=== PATIENT | female | born 1960 | race Caucasian/White ===

== ENCOUNTER 2025-08-20 14:08 | Emergency (ER) | payer OTHER ==
[2025-08-20] MEDS ORDERED: NA CHLORIDE 0.9% 1,000 ML ONE (14:41)
[2025-08-20] MEDS ORDERED: FAMOTIDINE 20 MG/2 ML VIAL IV ONE (14:41)
[2025-08-20] MEDS ORDERED: ONDANSETRON 4 MG/2 ML VIAL ONE (14:41)
[2025-08-20 14:52] LABS: PT Prothrombin Time 13.5 SECONDS (10-13.0); Protime INR 1.2
[2025-08-20 15:05] LABS: Absolute Lymphocytes (CBC) 1.1 K/uL (0.7-4.9); Hematocrit 39.3 % (36.0-45.0); Hemoglobin 14.1 g/dL (12.0-15.0); MCH 32.0 pg (27.0-35.0); MCHC 35.8 g/dL (32.0-36.0); MCV 89.4 fL (80-100); MPV 8.1 fL (7.6-11.3); Nucleated RBC Absolute Count 0.0 (0-0); Nucleated Red Blood Cells % 0.1 % (0-0); RBC Red Blood Cell Count 4.40 M/uL (3.86-4.86); White Blood Count 11.80 thou/uL (4.3-10.9)
[2025-08-20 15:08] LABS: ALT/SGPT 28 U/L (13-56); Albumin 3.3 g/dL (3.4-5.0); Albumin/Globulin Ratio 0.9 (1.1-1.8); Alkaline Phosphatase 68 U/L (45-117); Anion Gap 7.3 mEq/L (5.0-15.0); BUN Blood Urea Nitrogen 11 mg/dL (7-18); Globulin 3.5 g/dL (2.3-3.5); Glucose Level 124 mg/dL (74-106); Lipase 26 U/L (13-75); Magnesium 1.8 mg/dL (1.6-2.4); NT PRO-BNP 64 pg/mL (<125); Potassium 3.3 mEq/L (3.5-5.1); Troponin High Sensitivity 7.7 pg/mL (<58.9)
[2025-08-20 15:09] LABS: AST/SGOT < 10 U/L (15-37); Bilirubin Indirect, Calculated 0.4 mg/dL (0.2-0.8)
--- NOTE | 2025-08-20 15:19 | RAD REPORT ---
EXAMINATION: ONE VIEW CHEST XR CLINICAL INDICATION: epigastric pain TECHNIQUE: Frontal chest projection is submitted. Examination is limited by patient positioning and t echnique. COMPARISON: No prior exam. FINDINGS: The lungs are well inflated and clear. The heart is upper limit of normal in size. No displaced fract ures identified. IMPRESSION: No acute intrathoracic abnormalities.
[2025-08-20 15:32] LABS: Sqamous Epithelial <5 /HPF (None Seen); Urine Culture Reflex Order NOT NEEDED; Urine Microscopic Reflex YN ORDER UMIC
--- NOTE | 2025-08-20 16:21 | RAD REPORT ---
EXAMINATION: CT ABDOMEN AND PELVIS WITH CONTRAST CLINICAL INDICATION: epigastric/upper abdomen pain TECHNIQUE: CT abdomen and pelvis was performed, after the administration of IV contrast, as per [facility] protocol. Axial, sagittal and coronal reconstructions were obtained. One or more of the following dose reduction techniques were used: Automated exposure control, adjustment of the mA and k V according to patient size, and iterative reconstruction. Unless otherwise specified, incidental findings do not require dedicated imaging follow-up. COMPARISON: No prior exam. FINDINGS: LOWER CHEST: The visualized lung bases are clear. LIVER: Normal in size and contour. No focal lesion. Cholecystectomy clips. SPLEEN: Normal size. No focal lesion. PANCREAS: No mass, ductal dilation, or ana-pancreatic fluid. ADRENALS: Normal; no mass. KIDNEYS: Normal size and contour. No hydronephrosis. GASTROINTESTINAL TRACT: No evidence of free air, significant intra-abdominal free fluid, bowel obstru ction or abscess. APPENDIX: Normal appendix. LYMPH NODES: No lymphadenopathy. MUSCULOSKELETAL: Mild multilevel spinal degenerative changes. ADDITIONAL FINDINGS: Prominent venous structures in the pelvis on the left. Indicate pelvic congestio n. IMPRESSION: No acute abnormalities seen in the abdomen or pelvis.
--- NOTE | 2025-08-20 16:57 | ER ---
Nurse's Notes [facility] Name: Larisa Swift Age: 64 yrs Sex: Female : 1960 Arrival Date: 08/20/2025 Time: 14:08 Bed 10 Private MD: Diagnosis: Upper abdominal pain, unspecified Presentation: 08/20 14:11 Chief complaint: Patient states: upper abd pain since last , has been having iw n/v/d. Coronavirus screen: At this time, the client does not indicate any symptoms associated with coronavirus-19. Ebola Screen: No symptoms or risks identified at this time. Risk Assessment: Do you want to hurt yourself or someone else? Patient reports no desire to harm self or others. 14:11 Method Of Arrival: Wheelchair iw 14:11 Acuity: JOAQUÍN 3 iw 14:15 Initial Sepsis Screen: Does the patient meet any 2 criteria? No. Patient's initial nh2 sepsis screen is negative. Does the patient have a suspected source of infection? No. Patient's initial sepsis screen is negative. 14:20 Onset of symptoms was August 13, 2025. nh2 Historical: - Allergies: 14:17 No Known Allergies; iw - Home Meds: 14:30 Zoloft Oral [Active]; nh2 - PSHx: 14:30 Hysterectomy; Cholecystectomy; nh2 - Immunization history:: Adult Immunizations not up to date. - Infectious Disease History:: Denies. - Social history:: Smoking status: Patient denies any tobacco usage or history of. Screenin:30 [facility] ED Fall Risk Assessment (Adult) History of falling in the last 3 months, nh2 including since admission No falls in past 3 months (0 pts) Confusion or Disorientation No (0 pts) Intoxicated or Sedated No (0 pts) Impaired Gait No (0 pts) Mobility Assist Device Used No (0 pt) Altered Elimination No (0 pt) Score/Fall Risk Level 0 - 2 = Low Risk Oriented to surroundings, Maintained a safe environment, Educated pt \T\ family on fall prevention, incl call for assistance when getting out of bed, Assessed \T\ reinforced patient's understanding of fall precautions. Abuse screen: Denies threats or abuse. Denies injuries from another. Nutritional screening: No deficits noted. Tuberculosis screening: No symptoms or risk factors identified. Assessment: 14:30 General: Appears uncomfortable, Behavior is calm, cooperative, appropriate for age. nh2 Pain: Complains of pain in epigastric area Pain does not radiate. Pain currently is 1 out of 10 on a pain scale. Quality of pain is described as aching, Pain began 7 days ago Is intermittent. Neuro: Level of Consciousness is awake, alert, obeys commands, Oriented to person, place, time, situation, Appropriate for age Denies weakness dizziness. Cardiovascular: Denies chest pain, Patient's skin is warm and dry. Respiratory: Airway is patent Trachea midline Respiratory effort is even, unlabored, Respiratory pattern is regular, symmetrical, Denies cough, shortness of breath. GI: Bowel sounds present X 4 quads. Abd is soft and non tender X 4 quads. Reports nausea. : No signs and/or symptoms were reported regarding the genitourinary system. Denies burning with urination. EENT: No signs and/or symptoms were reported regarding the EENT system. Derm: Skin is intact, Skin is pink, warm \T\ dry. Musculoskeletal: Circulation, motion, and sensation intact. Range of motion: intact in all extremities. 15:30 Reassessment: Patient and/or family updated on plan of care and expected duration. Pain nh2 level reassessed. Patient is alert, oriented x 3, equal unlabored respirations, skin warm/dry/pink. Patient denies pain at this time. 16:30 Reassessment: Patient and/or family updated on plan of care and expected duration. Pain nh2 level reassessed. Patient is alert, oriented x 3, equal unlabored respirations, skin warm/dry/pink. Patient denies pain at this time. Vital Signs: 14:17 BP 120 / 69; Pulse 62; Resp 16; Pulse Ox 100% on R/A; Pain 10/10; iw 15:15 BP 114 / 70; Pulse 70; Resp 16; Temp 98; Pulse Ox 96% on R/A; nh2 16:15 BP 118 / 74; Pulse 68; Resp 18; Pulse Ox 98% on R/A; nh2 17:15 BP 116 / 71; Pulse 66; Resp 18; Temp 98(O); Pulse Ox 100% on R/A; nh2 14:17 Pain Scale: Adult iw ED Course: 14:10 Patient arrived in ED. iw 14:12 Triage completed. iw 14:14 Page, Freddy, PA-C [facility]. cp 14:14 Zoran Ruiz MD is Attending Physician. cp 14:29 Rodrigo Dias Jr, RN is Primary Nurse. nh2 14:30 Patient has correct armband on for positive identification. Bed in low position. Call nh2 light in reach. Side rails up X 1. Provided Education on: using call light for assistance. 14:30 Arm band placed on right wrist. nh2 14:39 Initial lab(s) drawn, by ED staff, sent to lab. Inserted saline lock: 20 gauge in right nh2 antecubital area, using aseptic technique. Blood collected. Flushed with 10 mL NS. 15:17 XRAY Chest (1 view) In Process Unspecified. EDMS 15:17 UA Rfx Howard Cult if indicated Sent. nh2 16:07 CT Abd/Pelvis - IV Contrast Only In Process Unspecified. EDMS 17:34 No provider procedures requiring assistance completed. IV discontinued, intact, nh2 bleeding controlled, No redness/swelling at site. Pressure dressing applied. Administered Medications: 14:54 Drug: NS 0.9% IV 1000 ml IV at 1000 ml once; to be given as a bolus over 90 minutes nh2 Route: IV; Rate: 1000 ml; Site: right antecubital; 16:31 Follow up: Response: No adverse reaction; IV Status: Completed infusion; IV Intake: nh2 1000ml 14:54 Drug: Ondansetron IVP 4 mg IVP once; over 2 minutes Route: IVP; Site: right antecubital;nh2 15:15 Follow up: Response: No adverse reaction; Nausea is decreased nh2 14:54 Drug: Famotidine IVP 20 mg IVP once; dilute with 10 mL 0.9% NaCl; give over 2 minutes nh2 Route: IVP; Site: right antecubital; 15:18 Follow up: Response: No adverse reaction nh2 Medication: 14:30 VIS not applicable for this client. nh2 Intake: 16:31 IV: 1000ml; Total: 1000ml. nh2 Outcome: 16:57 Discharge ordered by . cp 17:35 Discharged to home ambulatory, nh2 17:35 Condition: stable 17:35 Discharge instructions given to patient, Instructed on discharge instructions, follow up and referral plans. medication usage, Demonstrated understanding of instructions, follow-up care, medications, 17:35 Patient left the ED. nh2 Signatures: Dispatcher [employer] Raine Jackson, RN RN Freddy Gonzalez PA-C PARodrigo Mejia cp, Jr, RN RN nh2 Corrections: (The following items were deleted from the chart) 15:18 Response: No adverse reaction; Nausea is decreased nh2 nh2 16:31 Response: No adverse reaction nh2 nh2
--- NOTE | 2025-08-20 16:57 | EDPHYS ---
Physician Documentation [facility] Name: Larisa Swift Age: 64 yrs Sex: Female : 1960 Arrival Date: 08/20/2025 Time: 14:08 Bed 10 Private MD: ED Physician Zoran Ruiz HPI: 08/20 14:30 This 64 yrs old Female presents to ER via Wheelchair with complaints of Abdominal Pain, cp Nausea/Vomiting/Diarrhea. 14:30 The patient presents with abdominal pain in the epigastric area, in the upper abdomen. cp 14:30 Onset: The symptoms/episode began/occurred 1 week(s) ago. cp 14:30 The symptoms radiate to lower chest. Associated signs and symptoms: Pertinent cp positives: diarrhea, nausea, Pertinent negatives: constipation, fever, vomiting. The symptoms are described as waxing/waning. Severity of pain: in the emergency department the pain has improved. Historical: - Allergies: 14:17 No Known Allergies; iw - Home Meds: 14:30 Zoloft Oral [Active]; nh2 - PSHx: 14:30 Hysterectomy; Cholecystectomy; nh2 - Immunization history:: Adult Immunizations not up to date. - Infectious Disease History:: Denies. - Social history:: Smoking status: Patient denies any tobacco usage or history of. ROS: 14:35 Constitutional: Negative for body aches, chills, fever, poor PO intake, cp 14:35 Cardiovascular: Positive for radiating pain to lower chest, cp 14:35 Eyes: Negative for injury, pain, redness, and discharge, cp 14:35 ENT: Negative for drainage from ear(s), ear pain, sore throat, difficulty swallowing, difficulty handling secretions, 14:35 Neck: Negative for pain with movement, pain at rest, stiffness, 14:35 Abdomen/GI: Positive for abdominal pain, nausea, diarrhea, of the upper abdomen, Negative for vomiting, constipation, dysphagia, 14:35 Respiratory: Negative for cough, shortness of breath, wheezing, cp 14:35 Back: Negative for pain at rest, pain with movement, 14:35 Neuro: Negative for altered mental status, dizziness, headache, numbness, syncope, near syncope, weakness, 14:35 All other systems are negative, Exam: 14:40 Constitutional: The patient appears in no acute distress, alert, awake, cp non-diaphoretic, non-toxic, well developed, well nourished, uncomfortable, 14:40 Head/Face: Normocephalic, atraumatic. cp 14:40 Eyes: Periorbital structures: appear normal, Conjunctiva: normal, no exudate, no cp injection, Sclera: no appreciated abnormality, Lids and lashes: appear normal, bilaterally, 14:40 ENT: External ear(s): are unremarkable, Nose: is normal, Mouth: Lips: moist, Oral cp mucosa: moist, Posterior pharynx: Airway: no evidence of obstruction, patent, 14:40 Neck: ROM/movement: is normal, is supple, without pain, no range of motions cp limitations, 14:40 Chest/axilla: Inspection: normal, 14:40 Cardiovascular: Rate: normal, Rhythm: regular, Edema: is not appreciated, JVD: is not appreciated, 14:40 Respiratory: the patient does not display signs of respiratory distress, Respirations: normal, no use of accessory muscles, no retractions, labored breathing, is not present, Breath sounds: are clear throughout, no decreased breath sounds, no stridor, no wheezing, 14:40 Abdomen/GI: Inspection: Bowel sounds: active, all quadrants, Palpation: soft, in all quadrants, mild abdominal tenderness, rebound tenderness, is not appreciated, involuntary guarding, is not appreciated, 14:40 Back: CVA tenderness, is absent, cp 14:40 Neuro: Orientation: to person, place \T\ time. Mentation: is normal, Motor: moves all fours, strength is normal, 15:05 ECG was reviewed by the Attending Physician. cp Vital Signs: 14:17 BP 120 / 69; Pulse 62; Resp 16; Pulse Ox 100% on R/A; Pain 10/10; iw 15:15 BP 114 / 70; Pulse 70; Resp 16; Temp 98; Pulse Ox 96% on R/A; nh2 16:15 BP 118 / 74; Pulse 68; Resp 18; Pulse Ox 98% on R/A; nh2 17:15 BP 116 / 71; Pulse 66; Resp 18; Temp 98(O); Pulse Ox 100% on R/A; nh2 14:17 Pain Scale: Adult iw MDM: 14:14 Medical Screening Exam initiated cp 15:00 Differential diagnosis: pancreatitis, Peptic Ulcer Disease, Perf. Duodenal Ulcer, Perf. cp Gastric Ulcer, Pyelonephritis, Ureterolithiasis, urinary tract infection, choledocholithiasis. 16:57 Data reviewed: vital signs, nurses notes, lab test result(s), radiologic studies, CT cp scan, and as a result, I will discharge patient. 16:57 I considered the following discharge prescriptions or medication management in the emergency department Medications were administered in the Emergency Department. See MAR. Independent interpretation of the following test(s) in the Emergency Department EKG: See my EKG interpretation above. Counseling: I had a detailed discussion with the patient and/or guardian regarding the historical points, exam findings, and any diagnostic results supporting the discharge/admit diagnosis, lab results, radiology results, to return to the emergency department if symptoms worsen or persist or if there are any questions or concerns that arise at home. Response to treatment: the patient's symptoms have mildly improved after treatment, and as a result, I will discharge patient. Special discussion: Based on the patient's Hx, exam, and Dx evaluation, there is no indication for emergent surgery or inpatient Tx. It is understood by the patient/guardian that if the Sx's persist or worsen they need to return immediately for re-evaluation. 08/20 14:24 Order name: Basic Metabolic Panel; Complete Time: 15:16 08/20 16:21 Interpretation: Normal except: K 3.3; GLUC 124; GFR 82. 08/20 14:24 Order name: CBC with Diff; Complete Time: 15:16 08/20 14:24 Order name: LFT's; Complete Time: 15:16 08/20 14:24 Order name: Magnesium; Complete Time: 15:16 08/20 14:24 Order name: NT PRO-BNP; Complete Time: 15:16 08/20 14:24 Order name: PT-INR; Complete Time: 15:16 08/20 14:24 Order name: Troponin HS; Complete Time: 15:16 08/20 14:24 Order name: Lipase; Complete Time: 15:16 08/20 14:24 Order name: UA Rfx Howard Cult if indicated; Complete Time: 16:21 08/20 16:21 Interpretation: Normal except: [facility] Turbid; UPH 8.0. 08/20 14:24 Order name: XRAY Chest (1 view); Complete Time: 15:30 08/20 15:30 Interpretation: Report review. 08/20 15:31 Order name: CT Abd/Pelvis - IV Contrast Only; Complete Time: 16:44 08/20 16:45 Interpretation: Report reviewed. 08/20 14:24 Order name: EKG; Complete Time: 14:25 08/20 14:24 Order name: Cardiac monitoring; Complete Time: 15:07 08/20 14:24 Order name: EKG - Nurse/Tech; Complete Time: 15:07 08/20 14:24 Order name: IV Saline Lock; Complete Time: 14:54 08/20 14:24 Order name: Labs collected and sent; Complete Time: 14:39 08/20 14:24 Order name: O2 Per Protocol; Complete Time: 14:39 08/20 14:24 Order name: O2 Sat Monitoring; Complete Time: 14:39 08/20 16:46 Order name: PO challenge; Complete Time: 17:07 cp EC:05 Rate is 59 beats/min. Rhythm is regular. OK interval is normal. QRS interval is normal. cp QT interval is normal. T waves are Inverted in leads III, aVR. Interpreted by me. Reviewed by me. Administered Medications: 14:54 Drug: NS 0.9% IV 1000 ml IV at 1000 ml once; to be given as a bolus over 90 minutes nh2 Route: IV; Rate: 1000 ml; Site: right antecubital; 16:31 Follow up: Response: No adverse reaction; IV Status: Completed infusion; IV Intake: nh2 1000ml 14:54 Drug: Ondansetron IVP 4 mg IVP once; over 2 minutes Route: IVP; Site: right antecubital;nh2 15:15 Follow up: Response: No adverse reaction; Nausea is decreased nh2 14:54 Drug: Famotidine IVP 20 mg IVP once; dilute with 10 mL 0.9% NaCl; give over 2 minutes nh2 Route: IVP; Site: right antecubital; 15:18 Follow up: Response: No adverse reaction nh2 Disposition: 17:37 Co-signature as Attending Physician, Zoran Ruiz MD I reviewed the patient's care rn provided by the Advanced Practice Provider and agree with the diagnosis and treatment plan. Disposition Summary: 08/20/25 16:57 Discharge Ordered Notes: Location: Home cp Problem: new cp Symptoms: have improved cp Condition: Stable cp Diagnosis - Upper abdominal pain, unspecified cp Followup: cp - With: Private Physician - When: 5 - 6 days - Reason: Recheck today's complaints Discharge Instructions: - Discharge Summary Sheet cp - Abdominal Pain, Adult cp Forms: - Medication Reconciliation Form cp - Antibiotic Education cp - Prescription Opioid Use cp - Patient Portal Instructions cp - Leadership Thank You Letter cp Prescriptions: - Protonix 40 mg Oral Tablet - take 1 tablet ORAL route once daily; 30 tablet; Refills: 0, Product Selection cp Permitted - Zofran 4 mg Oral Tablet - take 1 tablet ORAL route every 12 hours As needed; 20 tablet; Refills: 0, cp Product Selection Permitted Signatures: Dispatcher [employer] Raine Jackson RN RN Zoran Ruiz MD MD rn Freddy Varghese, PA-C PA-C Rodrigo Vaz Jr, RN RN nh2 Corrections: (The following items were deleted from the chart) 15:31 15:31 Abdomen Pelvis W Con+CT.RAD.BRZ ordered. EDMS EDMS
[2025-08-20 17:41] VITALS: TEMP 98
[2025-08-20 17:43] VITALS: BP 116/71; O2SAT 100
== END 2025-08-20 17:35 | disposition home or self-care (01) ==
LOC: ER 14:08
DX: R10.10 Upper abdominal pain, unspecified (principal)
CPT/HCPCS: 96361; 93005; 85025; 81001; 80048; 36415; 83735; 85610; 80076; 84484; 83690; 83880; 74177; 71045; 96375; 96374; 99284; Q9967; J2405; J7030